=== PATIENT | female | born 1985 | race Caucasian/White ===

== ENCOUNTER 2024-08-13 12:43 | Emergency (ER) | payer BC, SELFPAY ==
[2024-08-13 13:02] VITALS: BP 132/87
--- NOTE | 2024-08-13 14:29 | ED.GENMED ---
History of Present Illness
General
Chief Complaint: Allergic Reaction
Time Seen by Provider: 08/13/24 14:29
History of Present Illness
History of Present Illness:
TIME OF INITIAL ENCOUNTER: 2:35 PM
HPI:
The patient has a known nut allergy and thinks that the pesto sauce that she used earlier today had walnuts or pine nuts in it. She had sensation of throat irritation and did give herself an EpiPen. She then had a anxiety attack. 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
EXAM:
GENERAL: Well appearing in no distress
HEENT: Minimal if any uvular edema but overall the airway is patent
CARDIOVASCULAR: No murmurs, normal heart rate, regular rhythm, No chest wall tenderness
PULMONARY: No respiratory distress, breath sounds are clear and equal, there is no wheeze
ABDOMEN: Soft with no peritoneal signs, no tenderness
NEUROLOGIC: Excellent strength all extremities, no coordination deficits
PSYCHIATRIC: Appropriate mental status, normal insight and judgement
EXTREMITIES: Nontender, no edema, moves all extremities equally
SKIN: No rash, no lesions
NUMBER AND COMPLEXITY OF PROBLEMS ADDRESSED AT THE ENCOUNTER
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
� Acute Exacerbation and/or Progression of Chronic Illness: This is an acute problem
� Differential Diagnosis includes: Foodborne allergy, airway compromise
AMOUNT AND/OR COMPLEXITY OF DATA TO BE REVIEWED AND ANALYZED
� I performed an independent evaluation of and my interpretation is:
EKG:
CT:
X-rays:
Laboratory Studies:
Other:
� Review of other/old records: I reviewed records, the patient was here with anaphylaxis in 2022. She states that today symptoms are much less severe than what they were until 3.
� Clinical information was obtained by an independent historian: None needed
� Prescriptions/Medications Considered but not given: Consider steroids but will hold off for now as she felt anxious and symptoms virtually have resolved
� Further testing considered but not performed:
RISK OF COMPLICATIONS AND/OR MORBIDITY OR MORTALITY OF PATIENT MANAGEMENT
� Social determinants of health affecting care: Lives at home
� Discussion with other providers:
� Escalation of care including admission/observation vs risk of discharge considered: I did send a prescription for both steroids which she will take only if needed as well as a refill for her EpiPen. She took the EpiPen
approximately 2 hours ago and continues to improve. She wishes to go home at this time.
ANY OTHER UPDATES:
Past History
Past History
ED Past Medical History: None
ED Past Surgical History: None
Social History
Tobacco: Non-smoker
Alcohol: None
Drug: None
Phy Exam
Physical Exam
Physical Exam:
See HPI
Course
Vital Signs
Initial and Last Documented VS:
Initial Vital Signs
Temp Pulse Resp BP Pulse Ox
98.4 F 62 16 132/87 100
08/13/24 13:02 08/13/24 13:02 08/13/24 13:02 08/13/24 13:02 08/13/24 13:02
Last Documented Vital Signs
Temp Pulse Resp BP Pulse Ox
98.4 F 62 16 132/87 100
08/13/24 13:02 08/13/24 13:02 08/13/24 13:02 08/13/24 13:02 08/13/24 13:02
*Critical Care Note
Total Time (30-74mins, 75-104mins- exclusive of procedures): Not Applicable
ED Attending Note
-
Portions of this chart may have been created with voice recognition software.� Occasional wrong word or��sound alike� substitutions may have occurred due to the inherent limitations of voice recognition software.
Discharge Plan
Departure
Patient Disposition: Home (Routine Discharge)
Date of Disposition: 08/13/24
Time of Disposition: 14:36
Patient with high blood pressure during this ER visit?: Yes
Discharge Problem:
Allergic reaction
Prescriptions:
New
prednisone 20 mg tablet
20 mg PO DAILY Qty: 3 0RF
epinephrine [EpiPen] 0.3 mg/0.3 mL auto-injector
0.3 mg IM .STAT PRN (Reason: anaphylaxis) Qty: 1 0RF
No Action
epinephrine [EpiPen] 0.3 mg/0.3 mL auto-injector
0.3 mg IM .STAT PRN (Reason: anaphylaxis) Qty: 1 1RF
prednisone 20 mg tablet
40 mg PO DAILY 4 Days Qty: 8 0RF
Activity Restrictions/Additional Instructions:
I see no sign for airway obstruction at this time. It is important to use EpiPen in the future if you have similar reactions. Do not hesitate to use your EpiPen. If you do have recurrence/worsening of symptoms I also sent a prescription for
steroids only be taken if needed. Return here if you have dramatically worse symptoms.
Interventions
Interventions:
*Risk Screen - Suicide Last Done: 08/13/24 13:02
*Neglect/Abuse Screening Last Done: 08/13/24 13:02
*ED COVID-19 Vaccine History Last Done: 08/13/24 13:02
Discharge Date and Time
Print Language: [place]
== END 2024-08-13 14:55 | disposition home or self-care (01) ==
LOC: EMR 12:43
PROVIDERS: EMERGENCY PHYSICIAN Emergency Medicine
DX: T78.40XA Allergy, unspecified, initial encounter (principal); X58.XXXA Exposure to other specified factors, initial encounter; F41.9 Anxiety disorder, unspecified
CPT/HCPCS: 99282